=== PATIENT | female | born 1990 | race Caucasian/White ===

== ENCOUNTER → 2016-12-25 | Outpatient (CLI) | payer MEDICAID ==
[~2016-12-25] MED LIST: BCP PO; GABA-826 PO; IBUP-1222 PO; No meds per pt.; OXYC-302 PO; PREN1TAB27 PO
[2016-12-25 13:16] LABS: HEMATOCRIT 42.6 % (34.6-47.8); HEMOGLOBIN 14.3 g/dL (11.7-16.4); WHITE BLOOD COUNT 7.6 x10^3/uL (3.4-10)
== END | disposition home or self-care (01) ==
LOC: STAR 12:26
PROVIDERS: ATTEND Obstetrics & Gynecology
DX: Z30.2 Encounter for sterilization (principal)
CPT/HCPCS: 36415; 81003; 84702; 85025

== ENCOUNTER 2017-01-02 09:42 | Day surgery (SDC) | payer MEDICAID ==
[~2017-01-02] VITALS: Ht 165.1 cm; Wt 61.9 kg
[2017-01-02 10:15] LABS: HCG UR OBC PASS
[2017-01-02] MEDS ORDERED: LACTATED RINGERS 1,000 ML IV SCH (10:17)
[2017-01-02] MEDS ORDERED: FOLI1TAB66 PO (10:20)
[2017-01-02] MEDS ORDERED: IRON PO (10:20)
[2017-01-02 10:21] VITALS: BP 104/67
[2017-01-02] MEDS ORDERED: EPINEPHRINE 1 MG/ML, 1ML ONE (10:57)
[2017-01-02] MEDS ORDERED: BUPIVACAINE/PF 0.25% ONE (10:57)
[2017-01-02] MEDS ORDERED: SILVER NITRATE STICK TP ONE (10:57)
[2017-01-02] MEDS ORDERED: MIDAZOLAM 1 MG/ML, 2ML ONE (12:05)
[2017-01-02] MEDS ORDERED: FENTANYL PF 100 MCG/2ML ONE ×2 (12:05→13:05)
[2017-01-02] MEDS ORDERED: KETOROLAC 30 MG/1 ML ONE (12:07)
[2017-01-02] MEDS ORDERED: PROPOFOL 10 MG/ML, 20ML ONE (12:07)
[2017-01-02] MEDS ORDERED: ROCURONIUM 10 MG/ML ONE (12:07)
[2017-01-02] MEDS ORDERED: SUCCINYLCHOLINE 20 MG/ML, 10ML ONE (12:07)
[2017-01-02] MEDS ORDERED: ONDANSETRON 2MG/ML, 2ML ONE (12:07)
[2017-01-02] MEDS ORDERED: ACETAMINOPHEN 325 MG TABLET PO PRN (12:30)
[2017-01-02] MEDS ORDERED: OXYcodone 5 MG/5 ML ORAL.SOL UDC PO PRN (12:30)
[2017-01-02] MEDS ORDERED: ONDANSETRON 2MG/ML, 2ML IVPush PRN (12:30)
[2017-01-02] MEDS ORDERED: METOCLOPRAMIDE 5 MG/ML, 2ML IV PRN (12:30)
[2017-01-02] MEDS ORDERED: HYDROmorphone 1 MG/ML, 1ML IV PRN (12:30)
[2017-01-02] MEDS ORDERED: hydrALAzine 20 MG/ML, 1ML IV PRN (12:30)
[2017-01-02] MEDS ORDERED: LABETALOL 5MG/ML, 20ML IV PRN (12:30)
[2017-01-02] MEDS ORDERED: OXYcodone 5 MG/5 ML ORAL.SOL UDC ONE (13:05)
[2017-01-02] MEDS: FENTANYL PF 100 MCG/2ML IV PRN ×2 (13:05→13:16)
[2017-01-02] MEDS ORDERED: ACETAMINOPHEN 650 MG/20.3 ML UDC ONE (13:05)
[2017-01-02] MEDS ORDERED: MEPERIDINE/PF 25MG/0.5ML ONE (13:09)
[2017-01-02] MEDS ORDERED: MEPERIDINE/PF 25MG/0.5ML IVPush ONE (13:30)
== END 2017-01-02 14:25 | disposition home or self-care (01) ==
LOC: OUT 09:42
PROVIDERS: ATTEND Obstetrics & Gynecology
DX: Z30.2 Encounter for sterilization (principal); Z98.890 Other specified postprocedural states
CPT/HCPCS: 58670; 81025; J0171; J0330; J1885; J2175; J2250; J2405; J2704; J3010; J3490; J7120

== ENCOUNTER 2017-01-03 18:09 | Emergency (ER) | payer MEDICAID ==
[~2017-01-03] VITALS: Ht 162.6 cm; Wt 61.4 kg
[~2017-01-03 18:09] MED LIST changes: +FOLI1TAB66 PO; +IRON PO
[2017-01-03 18:45] LABS: HEMATOCRIT 42.1 % (34.6-47.8); HEMOGLOBIN 14.1 g/dL (11.7-16.4); WHITE BLOOD COUNT 9.3 x10^3/uL (3.4-10)
[2017-01-03] MEDS ORDERED: OMNIPAQUE 350 MG/ML, 100ML BOTTLE ONE (18:52)
[2017-01-03 19:05] LABS: BLOOD UREA NITROGEN 6 mg/dL (7-18)
[2017-01-03 19:40] LABS: PATH.CAST-FLAG NOT PRESENT; SPERM-FLAG NOT PRESENT; SRC-FLAG NOT PRESENT; XTAL-FLAG NOT PRESENT; YLC-FLAG NOT PRESENT
[2017-01-03 19:51] VITALS: BP 116/69
[2017-01-03] MEDS ORDERED: ONDANSETRON 2MG/ML, 2ML ONE (20:21)
[2017-01-03] MEDS ORDERED: ONDANSETRON 2MG/ML, 2ML IVPush ONE (20:30)
== END 2017-01-03 20:47 | disposition home or self-care (01) ==
LOC: ED 18:42
DX: R10.84 Generalized abdominal pain (principal); R07.2 Precordial pain; Z98.51 Tubal ligation status; Z88.6 Allergy status to analgesic agent; Z88.5 Allergy status to narcotic agent
CPT/HCPCS: 36415; 71010; 71275; 74177; 80048; 81001; 82040; 84703; 85025; 93005; 96374; 99285; J2405; Q9967

== ENCOUNTER 2019-05-17 15:46 | Emergency (ER) | payer MEDICAID ==
[~2019-05-17] VITALS: Ht 165.1 cm; Wt 66.7 kg
[2019-05-17 15:51] VITALS: BP 103/78
[2019-05-17 16:18] LABS: MICROSCOPIC AUTO
[2019-05-17 17:10] LABS: MEAN CORPUSCULAR HGB CONC 33.8 g/dL (32.4-35.8); MEAN CORPUSCULAR VOLUME 94.9 fL (80-100); MEAN PLATELET VOLUME 8.6 fL (7.4-10.4); PLATELET COUNT 266 x10^3/uL (130-400); RED BLOOD COUNT 4.56 x10^6/uL (3.82-5.3); RED CELL DISTRIBUTION WIDTH 13.2 % (9.6-15.2)
[2019-05-17 17:21] LABS: ALANINE AMINOTRANSFERASE 11 U/L (12-78); ALBUMIN 3.7 g/dL (3.4-5.0); ANION GAP 8 mmol/L (5-15); CALCIUM 9.1 mg/dL (8.5-10.1); CHLORIDE 104 mmol/L (98-107); CREATININE 0.72 mg/dL (0.55-1.02)
[2019-05-17 17:23] LABS: ALKALINE PHOSPHATASE 54 U/L (45-117); BILIRUBIN,TOTAL 1.6 mg/dL (0.2-1.0); TOTAL PROTEIN 7.6 g/dL (6.4-8.2)
[2019-05-17 17:49] LABS: BASOPHILS # (AUTO) 0.05 x10^3/uL (0-0.1); BASOPHILS % (AUTO) 0 % (0-1); EOSINOPHILS # (AUTO) 0.03 x10^3/uL (0-0.4); EOSINOPHILS % (AUTO) 0 % (1-7); LYMPHOCYTES # (AUTO) 1.16 x10^3/uL (1-3.4); LYMPHOCYTES % (AUTO) 9 % (22-44); MD SCAN; MONOCYTES # (AUTO) 1.46 x10^3/uL (0.2-0.8); MONOCYTES % (AUTO) 12 % (2-9); NEUTROPHILS # (AUTO) 9.95 x10^3/uL (1.8-6.8); NEUTROPHILS % (AUTO) 79 % (42-75)
[2019-05-17] MEDS ORDERED: CEFTRIAXONE 1,000 MG IM ONE (20:00)
[2019-05-17] MEDS ORDERED: KETOROLAC 30 MG/1 ML IM ONE (20:00)
[2019-05-17] MEDS ORDERED: KETOROLAC 60 MG/2 ML ONE (20:06)
[2019-05-17] MEDS ORDERED: CEFTRIAXONE 1,000 MG ONE (20:07)
== END 2019-05-17 20:42 | disposition home or self-care (01) ==
LOC: ED 20:30
DX: N10 Acute pyelonephritis (principal); Z87.891 Personal history of nicotine dependence; Z90.49 Acquired absence of other specified parts of digestive tract; Z98.51 Tubal ligation status
CPT/HCPCS: 36415; 80053; 81001; 84703; 85025; 87077; 87086; 87186; 96372; 99283; J0696; J1885